=== PATIENT | male | born 1930 | race Caucasian/White ===

== ENCOUNTER → 2016-06-02 | Outpatient (CLI) | payer MEDICARE ==
[~2016-06-02] MED LIST: DIOVAN80 MG PO; FISH OIL500 MG PO; LOVENOX SYR100 MG/ML SQ; MULTIVITAMINS1 EACH PO; RED YEAST RICE600 M1 PO
== END ==
LOC: KOH-I 12:27
DX: I82.409 Acute embolism and thrombosis of unspecified deep veins of unspecified lower extremity (principal); D69.3 Immune thrombocytopenic purpura; D69.6 Thrombocytopenia, unspecified; I82.811 Embolism and thrombosis of superficial veins of right lower extremity
CPT/HCPCS: 93971